=== PATIENT | female | born 1930 | race Caucasian/White ===

== ENCOUNTER 2019-04-30 13:00 | Outpatient (CLI) | payer MEDICARE, OTHER ==
--- NOTE | 2019-05-01 01:57 | XRAY Report ---
Reason: Left SI pain Procedure Date: 04/30/2019 Accession Number: [id number] / [id number] Procedure: XR - SI Joints CPT Code: Final Report FULL RESULT: EXAM: LUMBOSACRAL SPINE RADIOGRAPHY, 3 VIEWS SACROILIAC JOINTS, 2 VIEWS EXAM DATE: 04/30/2019 05:06 PM. CLINICAL HISTORY: Low back pain COMPARISONS: None. TECHNIQUE: 3 views. FINDINGS: Lumbar spine: Alignment: Thoracolumbar levoscoliosis. Grade 2 anterolisthesis at L5 on S1. Grade 1 anterolisthesis at L4 on L5. Bones: Five tgr-diz-twskakm lumbar vertebral bodies are present. No acute fracture. Multilevel osteophyte. Disks: Multilevel disk space narrowing, greatest at L5-S1. Facets: Multilevel facet arthropathy, greatest at L5-S1. Sacroiliac Joints: Unremarkable. Soft Tissues: Normal. The visualized bowel gas pattern is normal. Sacroiliac joints: Bones: Normal. No fracture or bone lesion. Joints: The left sacroiliac joint is normal. Soft Tissues: Normal. IMPRESSION: 1. Grade 2 anterolisthesis at L5 on S1 and grade 1 anterolisthesis at L4 on L5. 2. Thoracolumbar levoscoliosis. 3. Multilevel degenerative disk disease and facet arthropathy. 4. Normal left sacroiliac joint. [facility]
--- NOTE | 2019-05-01 01:57 | XRAY Report ---
Reason: low back pain, L SI pain Procedure Date: 04/30/2019 Accession Number: [id number] / [id number] Procedure: XR - Lumbar Spine 2 View CPT Code: Final Report FULL RESULT: EXAM: LUMBOSACRAL SPINE RADIOGRAPHY, 3 VIEWS SACROILIAC JOINTS, 2 VIEWS EXAM DATE: 04/30/2019 05:06 PM. CLINICAL HISTORY: Low back pain COMPARISONS: None. TECHNIQUE: 3 views. FINDINGS: Lumbar spine: Alignment: Thoracolumbar levoscoliosis. Grade 2 anterolisthesis at L5 on S1. Grade 1 anterolisthesis at L4 on L5. Bones: Five xls-geu-ihyqslt lumbar vertebral bodies are present. No acute fracture. Multilevel osteophyte. Disks: Multilevel disk space narrowing, greatest at L5-S1. Facets: Multilevel facet arthropathy, greatest at L5-S1. Sacroiliac Joints: Unremarkable. Soft Tissues: Normal. The visualized bowel gas pattern is normal. Sacroiliac joints: Bones: Normal. No fracture or bone lesion. Joints: The left sacroiliac joint is normal. Soft Tissues: Normal. IMPRESSION: 1. Grade 2 anterolisthesis at L5 on S1 and grade 1 anterolisthesis at L4 on L5. 2. Thoracolumbar levoscoliosis. 3. Multilevel degenerative disk disease and facet arthropathy. 4. Normal left sacroiliac joint. [facility]
== END 2019-04-30 13:01 | disposition home or self-care (01) ==
LOC: DI.N 13:00 → DI 13:01
PROVIDERS: ATTEND Physician Assistant
DX: M53.3 Sacrococcygeal disorders, not elsewhere classified (principal); M51.37 Other intervertebral disc degeneration, lumbosacral region; M48.07 Spinal stenosis, lumbosacral region; M41.85 Other forms of scoliosis, thoracolumbar region
CPT/HCPCS: 72100; 72202

== ENCOUNTER 2019-05-25 16:20 | Outpatient (CLI) | payer MEDICARE, OTHER ==
--- NOTE | 2019-05-26 01:32 | XRAY Report ---
Reason: BILAT HIP PAIN Procedure Date: 05/25/2019 Accession Number: [id number] / [id number] Procedure: XR - Hips 2V BILAT CPT Code: Final Report FULL RESULT: EXAM: BILATERAL HIP RADIOGRAPHY EXAM DATE: 05/25/2019 04:41 PM. CLINICAL HISTORY: BILAT HIP PAIN. COMPARISON: SACROILIAC JOINTS 04/30/2019 4:01 PM. TECHNIQUE: 2 views each. FINDINGS: Bones: Osteopenia. No fractures or bone lesion. Right Hip: Joint space narrowing with marginal osteophyte formation. No dislocation. Left Hip: Joint space narrowing with marginal osteophyte formation. No dislocation. Soft Tissues: Vascular calcifications. Nonobstructive bowel gas pattern. No focal soft tissue swelling. IMPRESSION: Mild bilateral hip joint osteoarthritis. [facility]
== END 2019-05-25 16:21 | disposition home or self-care (01) ==
LOC: DI 16:20
PROVIDERS: ATTEND Family Medicine
DX: M16.0 Bilateral primary osteoarthritis of hip (principal)
CPT/HCPCS: 73521

== ENCOUNTER 2020-11-27 14:20 | Outpatient (CLI) | payer MEDICARE, OTHER | END 2020-11-27 14:21 | disposition other institution (70) | LOC: EMS 14:20 | DX: R29.898 Other symptoms and signs involving the musculoskeletal system (principal); R47.01 Aphasia; R11.10 Vomiting, unspecified | CPT/HCPCS: A0425; A0427 ==